=== PATIENT | male | born 1995 | race Caucasian/White ===

== ENCOUNTER 2017-09-02 18:19 | Emergency (ER) | payer OTHER ==
[2017-09-02 18:27] VITALS: BP 129/96; PULSE 86; TEMP 98.8; BMI 20.5
--- NOTE | 2017-09-02 18:28 | PDOC ---
History of Present Illness - General History Source: Patient Exam Limitations: No Limitations - History of Present Illness Initial Comments: 09/02/17 18:33 The patient is a 22 year old male with a past medical history of hyperhidrosis who presents to the emergency department for evaluation of left ankle pain. The patient reports moderate left ankle pain after sustaining a soccer injury today. Pt reports being sandwiched between 2 other players and subsequently feeling his left ankle roll. He notes he has rolled his left ankle in the past. Pt reports associated left ankle swelling. The patient reports taking Motrin 30 minutes ago prior to arrival. The patient denies hip pain or knee pain, denies any other kinds of injury, chest pain, sob, headache, and dizziness. Denies f/c, n/v, and any urinary/ bowel symptoms. Allergies: Hornet venom, NKDA Social History: No reported alcohol, cigarette, or drug use. Surgical History: Pt denies. <Shireen Patel - Last Filed: 09/02/17 18:34> - General History Source: Patient Exam Limitations: No Limitations <Cary Yen - Last Filed: 09/02/17 19:27> - General Chief Complaint: Injury Stated Complaint: LEFT ANKLE INJURY Time Seen by Provider: 09/02/17 18:24 Past History <Shireen Patel - Last Filed: 09/02/17 18:34> <Cary Yen - Last Filed: 09/02/17 19:27> - Past Medical History Allergies/Adverse Reactions: Allergies Allergy/AdvReac Type Severity Reaction Status Date / Time hornet venom Allergy Verified 09/02/17 18:23 No Known Drug Allergies Allergy Verified 09/02/17 18:23 WASP BITE Allergy Uncoded 09/02/17 18:23 Home Medications: Ambulatory Orders Ibuprofen [Advil -] 400 mg PO ASDIR PRN 09/02/17 Ibuprofen [Motrin -] 600 mg PO TID #90 tablet 09/02/17 Review of Systems - Review of Systems Able to Perform ROS?: Yes Comments:: GENERAL/CONSTITUTIONAL: No fever or chills. No weakness. HEAD, EYES, EARS, NOSE AND THROAT: No change in vision. No ear pain or discharge. No sore throat. CARDIOVASCULAR: No chest pain or shortness of breath. RESPIRATORY: No cough, wheezing, or hemoptysis. GASTROINTESTINAL: No nausea, vomiting, diarrhea or constipation. GENITOURINARY: No dysuria, frequency, or change in urination. MUSCULOSKELETAL: (+)Left ankle pain. (+)Left ankle swelling. No neck or back pain. SKIN: No rash NEUROLOGIC: No headache, vertigo, loss of consciousness, or change in strength/ sensation. ENDOCRINE: No increased thirst. No abnormal weight change. HEMATOLOGIC/LYMPHATIC: No anemia, easy bleeding, or history of blood clots. ALLERGIC/IMMUNOLOGIC: No hives or skin allergy. <Shireen Patel - Last Filed: 09/02/17 18:34> *Physical Exam - Vital Signs Last Vital Signs Temp Pulse Resp BP Pulse Ox 98.8 F 86 18 129/96 99 09/02/17 18:20 09/02/17 18:20 09/02/17 18:20 09/02/17 18:20 09/02/17 18:20 <Shireen Patel - Last Filed: 09/02/17 18:34> - Physical Exam General Appearance: Yes: Nourished Respiratory/Chest: positive: Lungs Clear, Normal Breath Sounds Cardiovascular: positive: Regular Rhythm, Regular Rate, S1, S2 Musculoskeletal: positive: Normal Inspection. negative: CVA Tenderness, CVA Tenderness (R), CVA Tenderness (L), Vertebral Tenderness Extremity: positive: Normal Capillary Refill, Normal Inspection, Normal Range of Motion, Tender (left lateral mall ttp, pos swelling decre rom secondary to pain. knee nt from, no post or med mall tenderness. ), Other <Cary Yen - Last Filed: 09/02/17 19:27> Medical Decision Making - Medical Decision Making 09/02/17 18:25 22-year-old male in the past medical history here with a left ankle injury sustained playing soccer states he may have rolled his ankle. Happened just prior to arrival pain is moderate there is associated swelling denies knee or hip pain. Took Motrin prior to arrival On exam the left ankle has lateral malleolus swelling tenderness palpation there is ecchymosis visible no medial or posterior malleolar tenderness the knee and hip are nontender with full range of motion 2+ DP PT pulses differential diagnosis includes fracture versus sprain plan x-ray of the ankle patient has arty taken Motrin for pain control just prior to arrival ice elevate and likely orthopedic follow-up <Cary Yen - Last Filed: 09/02/17 19:27> *DC/Admit/Observation/Transfer - Attestations Scribe Attestion: Documentation prepared by Shireen Patel, acting as medical insurance claims specialist for Cary Yen MD. <Shireen Patel - Last Filed: 09/02/17 18:34> <Cary Yen - Last Filed: 09/02/17 19:27> Diagnosis at time of Disposition: Mild ankle sprain - Discharge Dispostion Disposition: HOME Condition at time of disposition: Improved - Prescriptions Prescriptions: Ibuprofen [Motrin -] 600 mg PO TID #90 tablet - Referrals Referrals: Nir Carmen MD [Staff Physician] - - Patient Instructions Printed Discharge Instructions: Ankle Sprain Additional Instructions: use motrin 600 mg every 8 hrs as needed for pain. ice and elevate to reduce swelling. wear air splint until followup with orthopedist. follow up with orthopedist dr. carmen. call to schedule. you should use crutches for at least one week to ensure healing.
== END 2017-09-02 19:49 | disposition home or self-care (01) ==
LOC: FER 18:19
DX: S93.402A Sprain of unspecified ligament of left ankle, initial encounter (principal); Y93.66 Activity, soccer; Y92.89 Other specified places as the place of occurrence of the external cause; R61 Generalized hyperhidrosis
CPT/HCPCS: 73610-TC-LT-FY; 99283-25